=== PATIENT | female | born 1950 | race Caucasian/White ===

== ENCOUNTER 2017-12-25 14:30 | Outpatient (CLI) | payer MEDICARE, OTHER ==
[~2017-12-25 14:30] MED LIST: DICLOFENAC SODI75 MG PO; ENBREL25 MG SQ; LEVOXYL125 MCG PO; MICARDIS20 MG PO
[2017-12-25] MEDS ORDERED: PROBIOTIC1 EAC6 PO (16:10)
--- NOTE | 2017-12-25 16:13 | GI Initial Consult Note ---
History of Present Illness General Date patient seen: Dec 25, 2017 Time patient seen: 14:55 Referring physician: FAUSTO Reason for Consultation: ABDOMINAL PAIN UNSPECIFIED Present Illness HPI 67 year old patient referred by Dr. Berry to evaluate unspecified abdominal pain with additional c/o of diarrhea. Negative stool studies per Dr. Paez. EGD performed by Dr. Mejia. Denies any unintentional weight loss or changes in dietary habits. Patient is a fall risk. Home Meds Reported Medications L.acidoph & Paracasei,B.lactis (Probiotic) Unknown Strength Capsule, PO, CAP 12/25/17 Telmisartan (MICARDIS) 20 Mg Tablet, 20 MG PO DAILY 10/13/12 Diclofenac Sod* (VOLTAREN*) 75 Mg Tablet.dr, 75 MG PO BID 10/13/12 Levothyroxine Sodium* (LEVOXYL*) 125 Mcg Tablet, 125 MCG PO DAILY 10/13/12 Etanercept (Enbrel) 25 Mg Kit, 25 MG SQ QWEEK 10/13/12 Med list reviewed/reconciled: Yes Allergies: Coded Allergies: CODEINE (Verified Allergy, Severe, Shortness of Breath, 10/13/12) Patient History History Provided By: Patient, Medical Record PMH Narrative HTN Hemorrhoids CAD Hx of colonic polyps Past Surgical History: Cholecystectomy Foot B. TKR Pacemaker Osteomyelitis Social History: Denies: smoking, alcohol use, drug use, other Review of Systems All Other Systems: negative except mentioned in HPI Physical Exam refused vital signs HT 4'9 WT 162 lbs Sp02 EP Interpretation: reviewed, normal General Appearance: well appearing, no apparent distress, alert Head: normocephalic EENT: PERRL/EOMI, normal ENT inspection Neck: supple Respiratory: normal breath sounds, no respiratory distress Cardiovascular: normal rate Gastrointestinal: normal inspection, non tender, soft, normal bowel sounds, non -distended Rectal: deferred Genitourinary: no CVA tenderness Musculoskeletal: normal inspection, back normal Neurologic: normal inspection, alert, oriented x3, responsive Psychiatric: normal inspection, judgement/insight normal, memory normal Skin: normal inspection, normal color, no rash, warm/dry, palpation normal, well hydrated Lymphatic: normal inspection, no adenopathy GI: Plan Problems: (1) HTN (hypertension) (2) Hemorrhoid (3) CAD (coronary artery disease) (4) Colonic polyp (5) Colonoscopy planned Plan EGD/colonoscopy scheduled 12/29/17. - CLD & (Nulytely/Suprep/Movi-Prep) prep instructions given and acknowledged by patient. - NPO @ [place] day prior procedure explained. Seen with Dr. Rodrigues. Thank you for this patient referral. Kinjal Camejo N.P. Dec 25, 2017 16:13
== END 2017-12-25 15:01 | disposition home or self-care (01) ==
LOC: PAN 14:30
DX: R10.9 Unspecified abdominal pain (principal); K64.9 Unspecified hemorrhoids; I11.9 Hypertensive heart disease without heart failure; I25.10 Atherosclerotic heart disease of native coronary artery without angina pectoris; K63.5 Polyp of colon; Z90.49 Acquired absence of other specified parts of digestive tract; Z96.612 Presence of left artificial shoulder joint; Z96.611 Presence of right artificial shoulder joint; Z95.0 Presence of cardiac pacemaker; Z88.6 Allergy status to analgesic agent; Z91.81 History of falling
CPT/HCPCS: 99202

== ENCOUNTER 2018-01-05 13:35 | Outpatient (CLI) | payer MEDICARE, OTHER ==
[~2018-01-05 13:35] MED LIST changes: +PROBIOTIC1 EAC6 PO
--- NOTE | 2018-01-05 14:26 | GI Progress Note ---
Assessment/Plan Problems: (1) Hemorrhoid ICD Codes: K64.9 - Unspecified hemorrhoids SNOMED: 11504901 (2) Gastric ulcer ICD Codes: K25.9 - Gastric ulcer, unspecified as acute or chronic, without hemorrhage or perforation SNOMED: 150524778 (3) Gastritis ICD Codes: K29.70 - Gastritis, unspecified, without bleeding SNOMED: 8795851 Status: stable Status Narrative Discussed with Dr. Rodrigues. Assessment/Plan SUMMARY OF FINDINGS reviewed with patient: 1. Shallow gastric ulceration, status post biopsy and hemoclip. >> negative for H. Pylori 2. Mild atrophic gastritis, status post biopsy. 3. Large external hemorrhoids. 4. Very poor colonic and incomplete colonoscopy examination. 5. Status post biopsy of the right and left colon to rule out microscopic colitis. >> negative RECOMMENDATIONS: Rx Xifaxan RTC x 1 month repeat colonoscopy x 5 years Subjective Gastrointestinal/Abdominal: Reports: no symptoms Objective General Appearance: WD/WN, no apparent distress, alert Cardiovascular: normal rate Respiratory/Chest: normal breath sounds, no respiratory distress Abdominal Exam: normal bowel sounds, non tender, soft Extremities: normal range of motion, non-tender Kinjal Camejo N.P. January 05, 2018 14:26
== END 2018-01-05 14:05 | disposition home or self-care (01) ==
LOC: PAN 13:35
DX: K64.9 Unspecified hemorrhoids (principal); K25.9 Gastric ulcer, unspecified as acute or chronic, without hemorrhage or perforation; K29.70 Gastritis, unspecified, without bleeding
CPT/HCPCS: 99212

== ENCOUNTER 2018-04-06 14:35 | Outpatient (CLI) | payer MEDICARE, OTHER ==
[2018-04-06 14:56] VITALS: BP 145/85
--- NOTE | 2018-04-06 15:27 | GI Progress Note ---
Assessment/Plan Problems: (1) Colitis ICD Codes: K52.9 - Noninfective gastroenteritis and colitis, unspecified SNOMED: 69049976 (2) Gastritis ICD Codes: K29.70 - Gastritis, unspecified, without bleeding SNOMED: 2562298 (3) Gastric ulcer ICD Codes: K25.9 - Gastric ulcer, unspecified as acute or chronic, without hemorrhage or perforation SNOMED: 311182695 (4) Hemorrhoid ICD Codes: K64.9 - Unspecified hemorrhoids SNOMED: 43789994 (5) Colonic polyp ICD Codes: K63.5 - Polyp of colon SNOMED: 93127210 Status: stable Status Narrative Discussed with Dr. Rodrigues. Assessment/Plan SUMMARY OF FINDINGS: 1. Shallow gastric ulceration, status post biopsy and hemoclip. 2. Mild atrophic gastritis, status post biopsy. 3. Large external hemorrhoids. 4. Very poor colonic and incomplete colonoscopy examination. 5. Status post biopsy of the right and left colon to rule out microscopic colitis. RECOMMENDATIONS: Follow up biopsies and treat accordingly. >> mild acute colitis Xifaxan provide no relief Trial of fiber RTC x 1 month The patient was seen and examined at bedside and all new and available data was reviewed in the patients chart. I agree with the above findings, impression and plan. (Patient seen earlier today. Signature stamp does not reflect patient encounter time.). - Franklin Rodrigues MD Subjective Gastrointestinal/Abdominal: Reports: diarrhea - currently taking cholestyramine Objective Last 24 Hour Vital Signs Date Time Temp Pulse Resp B/P (MAP) Pulse Ox O2 Delivery O2 Flow Rate FiO2 04/06/18 14:56 145/85 General Appearance: WD/WN, no apparent distress, alert Cardiovascular: normal rate Respiratory/Chest: normal breath sounds, no respiratory distress Abdominal Exam: normal bowel sounds, non tender, soft Extremities: normal range of motion, non-tender Gonzalez Camejo COOKING CHEF Apr 06, 2018 15:27
== END 2018-04-06 15:07 | disposition home or self-care (01) ==
LOC: PAN 14:35
DX: K52.9 Noninfective gastroenteritis and colitis, unspecified (principal); K29.70 Gastritis, unspecified, without bleeding; K25.9 Gastric ulcer, unspecified as acute or chronic, without hemorrhage or perforation; K64.9 Unspecified hemorrhoids; K63.5 Polyp of colon
CPT/HCPCS: 99212